=== PATIENT | male | born 1965 | race Two or more races ===

== ENCOUNTER 2018-09-23 11:52 | Emergency (ER) | payer MEDICAID ==
[~2018-09-23] VITALS: Ht 162.6 cm; Wt 79.6 kg
[~2018-09-23 11:52] MED LIST: ALBU8.5H8 IH
[2018-09-23 12:00] VITALS: BP 192/107
[2018-09-23] MEDS ORDERED: HYDROcodone/acetaminophen 5mg/325mg tablet PO ONE (12:25)
[2018-09-23] MEDS ORDERED: TRAM50TA2 PO (13:46)
== END 2018-09-23 13:53 | disposition home or self-care (01) ==
LOC: ER 11:53
DX: S70.01XA Contusion of right hip, initial encounter (principal); S09.8XXA Other specified injuries of head, initial encounter; K21.9 Gastro-esophageal reflux disease without esophagitis; E78.00 Pure hypercholesterolemia, unspecified; E11.9 Type 2 diabetes mellitus without complications; Z88.0 Allergy status to penicillin; Z79.899 Other long term (current) drug therapy; Y04.0XXA Assault by unarmed brawl or fight, initial encounter; Y93.89 Activity, other specified; Y92.89 Other specified places as the place of occurrence of the external cause; Y99.8 Other external cause status
CPT/HCPCS: 70450; 72127; 73502; 99284

== ENCOUNTER 2020-11-02 15:03 | Emergency (ER) | payer MEDICAID ==
[~2020-11-02] VITALS: Ht 157.5 cm; Wt 63.6 kg
[2020-11-02] MEDS ORDERED: normal saline 1000ML IV soln IVB ONE (16:05)
[2020-11-02 16:36] LABS: BASOPHILS # (AUTO) 0.1 X10'3 (0-0.2); BASOPHILS % (AUTO) 0.9 % (0-1); EOSINOPHILS # (AUTO) 0.1 X10'3 (0-0.9); EOSINOPHILS % (AUTO) 2.5 % (0-6); HEMATOCRIT 36.2 % (42.0-52.0); HEMOGLOBIN 12.2 g/dl (14.0-17.9); LYMPHOCYTES # (AUTO) 1.5 X10'3 (1.1-4.8); LYMPHOCYTES % (AUTO) 27.3 % (21-51); MEAN CORPUSCULAR HEMOGLOBIN 30.7 PG (27.0-31.0); MEAN CORPUSCULAR HGB CONC 33.8 g/dL (33.0-36.5); MEAN CORPUSCULAR VOLUME 90.6 FL (78-98); MEAN PLATELET VOLUME 9.1 FL (7.4-10.4); MONOCYTES # (AUTO) 0.4 X10'3 (0-0.9); MONOCYTES % (AUTO) 7.7 % (2-12); NEUTROPHILS # (AUTO) 3.5 X10'3 (1.8-7.7); NEUTROPHILS % (AUTO) 61.6 % (42-75); PLATELET COUNT 220 X10'3 (140-440); RED BLOOD COUNT 3.99 X10'6 (4.70-6.10); RED CELL DISTRIBUTION WIDTH 13.5 % (11.5-14.5); WHITE BLOOD COUNT 5.6 X10'3 (4.5-11.0)
--- NOTE | 2020-11-02 16:39 | NUR ---
CHANDLER HYANES and she said that the protective services case worker has already left for the day but she also states the MD Santana is the pt's primary MD and he is on shift today. will inform JAYANT Godinez about this. we are trying to figure out if there is a place that can take the pt. spoke with pt's daughter Meredith about the pt's hx and what has led up to this. she states that a placed called [facility] in [place] has a room for him if he is admitted from the hospital. he was discharged from a place called [facility] in [place] on monday with the understanding that he could have full conversations and was able to get up with some minimal assistance. but this is not the case. the pt is a full assist and is not able to have full conversations. he comprehends an easy yes or no question when asked a few times. you can see recognition in his eyes.
[2020-11-02 16:51] LABS: ALANINE AMINOTRANSFERASE 16 U/L (12-78); ALBUMIN 3.7 G/DL (3.4-5.0); ALKALINE PHOSPHATASE 64 IU/L (46-116); ANION GAP 6 (8-16); ASPARTATE AMINO TRANSFERASE 12 U/L (10-37); BILIRUBIN,TOTAL 0.3 MG/DL (0.1-1.0); BLOOD UREA NITROGEN 13 MG/DL (7-18); BUN/CREATININE RATIO 19.4 (5.4-32.0); CALCIUM 8.9 MG/DL (8.5-10.1); CHLORIDE 107 MMOL/L (99-107); CREATININE 0.67 MG/DL (0.60-1.10); GLUCOSE 89 MG/DL (70-104); POTASSIUM 3.8 MMOL/L (3.5-5.1); SODIUM 142 MMOL/L (135-145); TOTAL CARBON DIOXIDE 29.4 MMOL/L (24-32); TOTAL PROTEIN 7.3 G/DL (6.4-8.2); eGFR > 90 ML/MIN
[2020-11-02 16:56] VITALS: BP 155/90
--- NOTE | 2020-11-02 17:35 | NUR ---
called [facility] in [place] at [phone] to ask about the process for them to take a pt. I was told by Rukhsana that I would need to talk to Parishrosanna Jez and she has already gone home for the day but she will be back in the morning. Was asked to call then and get info. will inform Herbert and the pt's daughter.
--- NOTE | 2020-11-02 17:40 | NUR ---
PT'S MARTI AND DEPENDS CHANGED
== END 2020-11-02 18:43 | disposition home or self-care (01) ==
LOC: ER 15:04
DX: G25.81 Restless legs syndrome (principal); E78.00 Pure hypercholesterolemia, unspecified; I10 Essential (primary) hypertension; K21.9 Gastro-esophageal reflux disease without esophagitis; E11.9 Type 2 diabetes mellitus without complications; Z86.73 Personal history of transient ischemic attack (TIA), and cerebral infarction without residual deficits; Z72.89 Other problems related to lifestyle; Z88.0 Allergy status to penicillin; Z79.899 Other long term (current) drug therapy
CPT/HCPCS: 36415; 71045; 80053; 85025; 96360; 99284; J7030